=== PATIENT | male | born 1965 | race Hispanic/Latino ===

== ENCOUNTER 2018-07-28 09:57 | Emergency (ER) | payer OTHER ==
[~2018-07-28] VITALS: Ht 165.1 cm; Wt 77.1 kg
[2018-07-28 10:11] VITALS: BP 132/85
== END 2018-07-28 10:16 | disposition home or self-care (01) ==
LOC: ER 09:57
DX: L02.01 Cutaneous abscess of face (principal); I10 Essential (primary) hypertension; E11.9 Type 2 diabetes mellitus without complications
CPT/HCPCS: 99282

== ENCOUNTER 2018-12-12 12:30 | Observation (INO) | payer OTHER ==
[~2018-12-12] VITALS: Ht 165.1 cm; Wt 71.4 kg
--- OUTSIDE RECORDS SUMMARY | 2018-12-12 12:32 | XMS REPORT ---
[facility] Address Unknown Phone Unavailable Care Team Providers Care Aboriginal Education Teacher Name Role Phone Unavailable Unavailable Problems This patient has no known problems. Allergies, Adverse Reactions, Alerts This patient has no known allergies or adverse reactions. Medications This patient has no known medications. Encounters Start Date/Time End Date/Time Encounter Type Admission Type Attending [facility] Care Department Encounter ID 2017-11-23 00:00:00 2017-11-23 00:00:00 Outpatient [facility] [id number] 2017-11-22 00:00:00 2017-11-22 00:00:00 Outpatient [facility] [id number] 2017-11-19 00:00:00 2017-11-19 00:00:00 Outpatient [facility] [id number] 2017-10-11 00:00:00 2017-10-11 00:00:00 Outpatient [facility] [id number] 2017-09-22 00:00:00 2017-09-22 00:00:00 Outpatient [facility] [id number] 2017-08-26 00:00:00 2017-08-26 00:00:00 Outpatient [facility] [id number] 2017-08-25 00:00:00 2017-08-25 00:00:00 Outpatient [facility] [id number] 2017-07-28 00:00:00 2017-07-28 00:00:00 Outpatient [facility] [id number] 2017-07-26 00:00:00 2017-07-26 00:00:00 Outpatient [facility] [id number] 2017-07-25 00:00:00 2017-07-25 00:00:00 Outpatient [facility] [id number] 2017-07-25 00:00:00 2017-07-25 00:00:00 Outpatient [facility] [id number] 2017-07-19 10:29:20 2017-07-19 10:29:20 Outpatient [facility] [id number] 2017-07-01 00:00:00 2017-07-01 00:00:00 Outpatient [facility] [id number] 2017-06-27 00:00:00 2017-06-27 00:00:00 Outpatient [facility] [id number] 2017-06-24 09:39:54 2017-06-24 09:39:54 Outpatient [facility] [id number] 2017-05-27 12:53:37 2017-05-27 12:53:37 Outpatient [facility] [id number] 2017-05-24 13:25:09 2017-05-24 13:25:09 Outpatient [facility] [id number] 2017-05-19 14:41:06 2017-05-19 14:41:06 Outpatient [facility] [id number] 2017-03-03 00:00:00 2017-03-03 00:00:00 Outpatient [facility] [id number] 2017-02-09 00:00:00 2017-02-09 00:00:00 Outpatient [facility] [id number] 2017-02-08 00:00:00 2017-02-08 00:00:00 Outpatient [facility] [id number] 2017-02-08 00:00:00 2017-02-08 00:00:00 Outpatient [facility] [id number] 2017-01-28 09:51:54 2017-01-28 09:51:54 Outpatient [facility] [id number] 2017-01-11 08:42:56 2017-01-11 08:42:56 Outpatient [facility] [id number] 2017-01-06 00:00:00 2017-01-06 00:00:00 Outpatient [facility] [id number] 2016-12-17 14:35:16 2016-12-17 14:35:16 Outpatient [facility] [id number] 2016-12-15 13:54:51 2016-12-15 13:54:51 Outpatient [facility] [id number] 2016-12-15 12:47:55 2016-12-15 12:47:55 Outpatient [facility] [id number] 2016-12-14 08:35:32 2016-12-14 08:35:32 Outpatient [facility] [id number] 2016-11-19 15:41:58 2016-11-19 15:41:58 Outpatient [facility] [id number] 2016-11-09 15:21:59 2016-11-09 15:21:59 Outpatient [facility] [id number] 2016-11-09 14:12:02 2016-11-09 14:12:02 Outpatient [facility] [id number] 2016-10-20 09:37:44 2016-10-20 09:37:44 Outpatient [facility] [id number]
[2018-12-12] MEDS ORDERED: ASPIRIN 81 MG CHEW TAB PO ONE (13:00)
--- NOTE | 2018-12-12 13:01 | NUR ---
SEEN BY DR. FOSTER IN TREATMENT ROOM
[2018-12-12] MEDS ORDERED: FAMOTIDINE 20 MG/2 ML VIAL IV STA (13:09)
[2018-12-12] MEDS ORDERED: SODIUM CHLORIDE 0.9% 1000ML 1,000 ML IV STA (13:09)
[2018-12-12] MEDS ORDERED: METOPROLOL TARTRATE 50 MG TAB PO STA (13:09)
[2018-12-12] MEDS ORDERED: DEXTROSE 50% SYRINGE 50 ML IV PRN (13:15)
[2018-12-12] MEDS ORDERED: NITROGLYCERIN 0.4 MG SUBL SL PRN (13:15)
[2018-12-12] MEDS ORDERED: ENOXAPARIN SODIUM INJ 100 MG/ML SYR SC SCH (13:15)
[2018-12-12] MEDS ORDERED: ONDANSETRON HCL INJ 2MG/ML 2ML 2 MG/ML VIAL IV PRN (13:15)
[2018-12-12] MEDS ORDERED: MORPHINE SULFATE 2 MG/ML SYR 1ML IV PRN (13:15)
[2018-12-12] MEDS ORDERED: ENOXAPARIN INJ 80 MG/0.8 ML SYR SC ONE (13:30)
[2018-12-12 14:04] LABS: AMPHETAMINES SCREEN,URINE N (NEGATIVE); BENZODIAZEPINES SCREEN,URINE N (NEGATIVE); PHENCYCLIDINE SCREEN,URINE N (NEGATIVE)
[2018-12-12 14:06] LABS: BILIRUBIN,URINE NEGATIVE (NEGATIVE); CLARITY,URINE CLEAR (CLEAR); COLOR,URINE YELLOW (YELLOW); KETONES,URINE NEGATIVE (NEGATIVE); LEUKOCYTE ESTERASE ,URINE TRACE (NEGATIVE); NITRITE,URINE NEGATIVE (NEGATIVE); PROTEIN,URINE DIPSTICK NEGATIVE (NEGATIVE); URINE UROBILINOGEN 0.2 mg/dL (0.2 - 1)
--- NOTE | 2018-12-12 14:15 | Diagnostic Imaging Report ---
Chest, 1 view, 12/12/2018. History: Chest pain. Comparison: None available. Findings: The cardiomediastinal silhouette and pulmonary vasculature are within normal limits for a portable exam. There is no focal consolidation or pleural effusion. There are no acute osseous or soft tissue abnormalities. Impression: No acute cardiopulmonary abnormality. Signed by: Tavo Braxton on 12/12/2018 2:11 PM
[2018-12-12 14:28] LABS: BASOPHILS % 0.6 % (0.0-1.0); EOSINOPHILS # (AUTO) 0.1 (0.0-0.4); EOSINOPHILS % 2.1 % (0.0-6.0); HEMATOCRIT 46.4 % (38.2-49.6); HEMOGLOBIN 16.2 g/dL (14.0-18.0); LYMPHOCYTES # (AUTO) 1.8 (1.0-3.2); MEAN CORPUSCULAR HGB CONC 34.9 g/dL (31-35); MEAN CORPUSCULAR VOLUME 97.3 fL (81-99); MONOCYTES # (AUTO) 0.5 (0.2-0.8); MONOCYTES % 7.8 % (4.4-11.3); NEUTROPHILS # (AUTO) 3.8 (2.1-6.9); NEUTROPHILS % 60.3 % (38.7-80.0); PLATELET COUNT 192 x10e3/uL (140-360); RED BLOOD COUNT 4.77 x10e6/uL (4.3-5.7); RED CELL DISTRIBUTION WIDTH 12.1 % (11.7-14.4)
[2018-12-12] MEDS ORDERED: METOPROLOL TARTRATE 25 MG TAB PO SCH (14:30)
[2018-12-12] MEDS: FAMOTIDINE 20 MG/2 ML VIAL IV SCH ×2 (14:30→20:44)
[2018-12-12] MEDS ORDERED: ENOXAPARIN INJ 80 MG/0.8 ML SYR SC SCH (14:30)
[2018-12-12 14:38] LABS: BACTERIA,URINE FEW /HPF; EPITHELIAL CELLS,URINE MODERATE /LPF
[2018-12-12 14:47] LABS: ALANINE AMINOTRANSFERASE 15 IU/L (0-55); ALBUMIN 3.9 g/dL (3.5-5.0); ALBUMIN/GLOBULIN RATIO 1.2 (0.8-2.0); ALKALINE PHOSPHATASE 103 IU/L (40-150); ANION GAP 14.4 mmol/L (8-16); BLOOD UREA NITROGEN 15 mg/dL (7-26); BUN/CREATININE RATIO 13 (6-25); CALCIUM 9.4 mg/dL (8.4-10.2); CARBON DIOXIDE 28 mmol/L (22-29); CHLORIDE 99 mmol/L (98-107); CREATINE KINASE 219 IU/L (30-200); EST GLOMERULAR FILTRATION RATE > 60 ML/MIN (60-); SODIUM 136 mmol/L (136-145)
[2018-12-12 14:51] LABS: GLUCOSE 451 mg/dL (74-118); POTASSIUM 5.4 mmol/L (3.5-5.1)
[2018-12-12] MEDS ORDERED: INSULIN REGULAR, HUMAN 100 UNIT/1 ML 3ML VIAL IV NR (15:00)
[2018-12-12 15:10] LABS: MAGNESIUM 2.3 MG/DL (1.3-2.1)
[2018-12-12] MEDS ORDERED: INSULIN REGULAR, HUMAN 100 UNIT/1 ML 3ML VIAL SQ ONE (15:15)
[2018-12-12 15:20] LABS: INR 0.91; PROTHROMBIN TIME 12.7 seconds (11.9-14.5)
[2018-12-12 15:21] LABS: PARTIAL THROMBOPLASTIN TIME 23.3 seconds (23.8-35.5)
[2018-12-12] MEDS ORDERED: INSULIN REGULAR, HUMAN 100 UNIT/1 ML 3ML VIAL SQ NR (15:45)
[2018-12-12] MEDS ORDERED: HYDRALAZINE HCL 20 MG/ML VIAL IV NR (16:30)
[2018-12-12] MEDS: INSULIN REGULAR, HUMAN 100 UNIT/1 ML 3ML VIAL SQ SCH ×2 (16:30→22:00)
--- NOTE | 2018-12-12 16:42 | NUR ---
RECEIVED PATIENT FROM ER. PATIENT A/O X3, EVEN RESPIRATIONS ON RA. BOWEL SOUNDS ACTIVE, SKIN INTACT, NO EDEMA. TELEMETRY #10 ST-115 PER TELEMETRY. LEFT FA 20 GAUGE IV SL. IV INTACT AND PATENT. PATIENT REPORTS NO CHEST PAIN AT THIS TIME. LUNG SOUNDS CLEAR TO AUSCULTATION. PATIENT AMBULATES INDEPENDENTLY. ORIENTED PATIENT TO ROOM. BED LOW, WHEELS LOCKED, SIDE RAILS X2. CALL LIGHT IN REACH WILL CONTINUE TO MONITOR PATIENT.
[2018-12-12 16:53] VITALS: BP 162/88
[2018-12-12 16:59] VITALS: BP 162/88
[2018-12-12 17:05] VITALS: BP 162/88
--- NOTE | 2018-12-12 19:48 | NUR ---
patient in the room, awake alert oriented, no distress noted, asking for some food. he eats and drinks normal. patient stated no need for IV fluids when the nurse asking if he got IV fluid in ER. denied any discomfort at this time, will continue to monitor.
[2018-12-12 20:06] VITALS: BP 152/88
[2018-12-12] MEDS: LABETALOL HCL 100 MG TAB PO SCH (20:45)
[2018-12-12] MEDS ORDERED: SIMVASTATIN 20 MG TAB PO SCH (21:00)
--- NOTE | 2018-12-12 21:07 | History and Physical ---
HISTORY OF PRESENT ILLNESS: A 53-year-old male, past medical history positive for hypertension and diabetes, came here with chest pain on and off. He is going to be admitted to the hospital. REVIEW OF SYSTEMS: CARDIOVASCULAR: Chest pain. He had chest pain on and off for 15 minutes unless no associated shortness of breath or palpitation. RESPIRATORY: No shortness of breath. No cough. GASTROINTESTINAL: No nausea, vomiting, or diarrhea. GENITOURINARY: No frequency. No dysuria. ALLERGIES: NOT ALLERGIC TO ANY MEDICATION. PAST MEDICAL HISTORY: Hypertension and diabetes. SOCIAL HISTORY: He does not smoke. He drinks occasionally. PHYSICAL EXAMINATION: HEART: Showed regular rhythm. Normal S1 and S2 sound. LUNGS: Clear bilaterally. ABDOMEN: Soft. DIAGNOSTIC DATA: EKG showed normal sinus rhythm. No evidence of any ST-segment elevation or depression. LABORATORY DATA: Lab work is in progress. IMPRESSION: 1. Atypical chest pain. 2. Hypertension. 3. Diabetes mellitus type 2. PLAN OF TREATMENT: We are going to start aspirin, statins, beta blockers, troponin x3. Cardiology consult with Dr. Thomas. Resume home medications. Workup for chest pain will be in progress. MD JESSE Pedroza/GARRY /[id number]
--- NOTE | 2018-12-12 22:15 | NUR ---
informed patient that he will have stress test tomorrow, and he need to be fasting after midnight and no caffein. the patient is aware.
[2018-12-12 23:56] VITALS: BP 156/96
[2018-12-13] VITALS (7 sets, daily range): BP systolic 127–144; BP diastolic 74–85
--- NOTE | 2018-12-13 02:21 | NUR ---
Received report from PM nurse. Patient resting quitly at this time.
[2018-12-13] MEDS: ENOXAPARIN INJ 80 MG/0.8 ML SYR SC SCH ×2 (03:57→16:25)
--- NOTE | 2018-12-13 05:13 | Consultation ---
DATE OF CONSULTATION: Cardiology Consultation REQUESTING PHYSICIAN: Esequiel Potts MD. REASON FOR CONSULTATION: Chest pain. HISTORY OF PRESENT ILLNESS: This is a 53-year-old man with history of diabetes mellitus and hypertension, presents with complaints of chest pain. He reports he has been having chest pain for the last two months, described as pressure 6 to 7/10 in severity, lasting an hour at a time, it occurred every other day associated with nausea and radiates to the head. He denies any edema, orthopnea or PND. He denies any shortness of breath or diaphoresis. REVIEW OF SYSTEMS: Negative except as per HPI. PAST MEDICAL HISTORY: Hypertension, diabetes mellitus. PAST SURGICAL HISTORY: Denies. ALLERGIES: PLEASE SEE EMR. MEDICATIONS: Please see medication list. SOCIAL HISTORY: Denies tobacco, alcohol, or illicit drugs. FAMILY HISTORY: Pertinent for mother with cerebrovascular accident. PHYSICAL EXAMINATION: VITAL SIGNS: Temperature 97.5 degrees, pulse 78, respiratory rate 18, blood pressure 152/88, oxygen saturation 98% on room air. GENERAL: Awake, alert, in no acute distress. Well-developed, well-nourished. HEENT: Normocephalic, atraumatic. Pupils equal. No scleral icterus. NECK: Supple. No thyromegaly or cervical lymphadenopathy. No carotid bruits. LUNGS: Clear to auscultation bilaterally. No wheezes or crackles. CARDIOVASCULAR: Normal rate. Regular rhythm. No murmur. Normal S1, S2. ABDOMEN: Soft, nontender. EXTREMITIES: No edema. NEUROLOGIC: Nonfocal exam. LABORATORY DATA: WBC 6.28, hemoglobin 15.2, hematocrit 46.4, and platelets 192. Sodium 136, potassium 5.4, chloride 99, CO2 of 28, BUN 15, creatinine 1.2, glucose 451. Troponin less than 0.001. Chest x-ray, no acute cardiopulmonary abnormality. EKG, sinus rhythm with nonspecific T-wave abnormalities. IMPRESSION: 1. Chest pain. 2. Abnormal ECG. 3. Hypertension. 4. Diabetes mellitus type 2. RECOMMENDATIONS: Trend cardiac enzymes to rule out myocardial infarction. Given risk factors, ischemic evaluation is indicated with nuclear stress test. Monitor patient on telemetry. Check fasting lipid panel. Further recommendations pending test results. Thank you for this consult. We will continue to follow. MD VERONA Slaughter/GARRY /[id number]
[2018-12-13 05:14] LABS: BASOPHILS % 0.8 % (0.0-1.0); EOSINOPHILS # (AUTO) 0.2 (0.0-0.4); EOSINOPHILS % 4.3 % (0.0-6.0); HEMATOCRIT 42.6 % (38.2-49.6); HEMOGLOBIN 14.6 g/dL (14.0-18.0); LYMPHOCYTES # (AUTO) 1.9 (1.0-3.2); LYMPHOCYTES % 37.8 % (18.0-39.1); MEAN CORPUSCULAR HEMOGLOBIN 33.2 pg (28-32); MEAN CORPUSCULAR HGB CONC 34.3 g/dL (31-35); MEAN CORPUSCULAR VOLUME 96.8 fL (81-99); MONOCYTES # (AUTO) 0.5 (0.2-0.8); MONOCYTES % 10.4 % (4.4-11.3); NEUTROPHILS # (AUTO) 2.4 (2.1-6.9); NEUTROPHILS % 46.5 % (38.7-80.0); PLATELET COUNT 163 x10e3/uL (140-360); RED CELL DISTRIBUTION WIDTH 11.9 % (11.7-14.4)
[2018-12-13 05:38] LABS: CREATINE KINASE MB 1.1 ng/mL (0-5.0)
[2018-12-13 06:06] LABS: ALANINE AMINOTRANSFERASE 14 IU/L (0-55); ALBUMIN 3.3 g/dL (3.5-5.0); ALBUMIN/GLOBULIN RATIO 1.1 (0.8-2.0); ALKALINE PHOSPHATASE 76 IU/L (40-150); ANION GAP 16.9 mmol/L (8-16); BLOOD UREA NITROGEN 16 mg/dL (7-26); BUN/CREATININE RATIO 19 (6-25); CARBON DIOXIDE 24 mmol/L (22-29); CHLORIDE 101 mmol/L (98-107); CHOL/HDL RATIO 5.7 (3.9-4.7); CHOLESTEROL 234 MD/DL (0-199); CREATININE, SERUM 0.86 mg/dL (0.72-1.25); EST GLOMERULAR FILTRATION RATE > 60 ML/MIN (60-); GLUCOSE 235 mg/dL (74-118); HDL CHOLESTEROL 41 MG/DL (40-60); LDL CHOLESTEROL 114 MG/DL (60-130); MAGNESIUM 2.2 MG/DL (1.3-2.1); PHOSPHORUS 3.4 MG/DL (2.3-4.7); POTASSIUM 3.9 mmol/L (3.5-5.1); SODIUM 138 mmol/L (136-145); TRIGLYCERIDES 394 MG/DL (0-149)
--- NOTE | 2018-12-13 06:37 | NUR ---
Consent signed . Patient resting quitly at this time.
--- NOTE | 2018-12-13 06:40 | NUR ---
rounded with power and recovery shift engineer nurse, patient resting comfortably and in no distress. call mora within reach and bed in lowest position.
[2018-12-13] MEDS: INSULIN REGULAR, HUMAN 100 UNIT/1 ML 3ML VIAL SQ SCH ×3 (07:30→16:25)
[2018-12-13] MEDS: FAMOTIDINE 20 MG/2 ML VIAL IV SCH (08:00)
[2018-12-13] MEDS: ASPIRIN 81 MG ENTERIC COATED PO SCH (08:00)
[2018-12-13] MEDS: LABETALOL HCL 100 MG TAB PO SCH ×2 (08:29→20:48)
[2018-12-13] MEDS ORDERED: LISINOPRIL 10 MG TAB PO SCH (09:00)
--- NOTE | 2018-12-13 11:23 | NUR ---
patient alert and oriented. leaving unit via wheelchair to nuclear medicine for stress test.
--- NOTE | 2018-12-13 11:41 | NUR ---
PT IN SHOWER UNABLE TO DO DPA AT THIS TIME
[2018-12-13] MEDS ORDERED: ONDANSETRON HCL 4 MG ORAL DISINTEGRATING TAB PO PRN (12:00)
[2018-12-13] MEDS ORDERED: REGADENOSON 0.4 MG/5 ML SYR IV ONE (12:32)
--- NOTE | 2018-12-13 17:07 | Progress Note ---
DATE: 12/13/2018 Cardiology Progress Note SUBJECTIVE: The patient denies chest pain or shortness of breath. He was seen for nuclear stress test today. OBJECTIVE: VITAL SIGNS: Temperature 97.2 degrees, pulse 86, respiratory rate 20, blood pressure 144/85, oxygen saturation 95% on room air. GENERAL: Awake, alert, in no acute distress. LUNGS: Clear to auscultation bilaterally. No wheezes or crackles. CARDIOVASCULAR: Normal rate, regular rhythm. No murmur. Normal S1, S2. ABDOMEN: Soft, nontender. EXTREMITIES: No edema. CARDIAC MEDICATIONS: Lisinopril 5 mg p.o. daily, aspirin 81 mg p.o. q.a.m., enoxaparin 80 mg subcu q.12 hours, simvastatin 20 mg p.o. at bedtime. LABORATORY DATA: WBC 5.08, hemoglobin 14.6, hematocrit 42.6, platelets 163. Sodium 138, potassium 3.9, chloride 101, CO2 of 24, BUN 16, and creatinine 0.86 troponin 0.009. Cholesterol 234, triglycerides 394, LDL 114, HDL 41. TELEMETRY: Normal sinus rhythm. IMPRESSION: 1. Chest pain. 2. Abnormal ECG. 3. Hypertension. 4. Diabetes mellitus type 2. RECOMMENDATIONS: No evidence of myocardial infarction on serial cardiac biomarkers. Nuclear stress test was performed to evaluate for ischemia. Further recommendations pending review of images once available. Discontinue simvastatin and start atorvastatin given LDL of 114 and known diabetes mellitus. Increase lisinopril as blood pressure is not at goal. Continue current cardiac medications otherwise. Thank you for this consult. We will continue to follow. Liz Lee MD ABS/MODL /[id number]
--- NOTE | 2018-12-13 19:27 | Myoview Stress Test ---
DATE OF STUDY: 12/12/2018 22:19:00 Stress Test - Treadmill ONLY PROCEDURE TYPE: Rest/stress single isotope SPECT imaging with pharmacologic stress and gated SPECT imaging. INDICATION: Chest pain. PROCEDURE IN DETAIL: Pharmacologic stress testing was performed with regadenoson per protocol. The heart rate was 77 beats per minute at rest and then increased to 119 beats per minute during the regadenoson infusion. The resting blood pressure was 119/72 mmHg and decreased to 97/65 mmHg, which is a normal response. The resting electrocardiogram demonstrated normal sinus rhythm. There were no ST-segment changes suggestive of myocardial ischemia. Myocardial perfusion imaging was performed at rest following the injection of 11 mCi of tetrofosmin. At peak pharmacologic effect, the patient was injected with 30 mCi of tetrofosmin. Gated post-stress tomographic imaging was performed. FINDINGS: The overall quality of study is fair. Left ventricular cavity is noted to be normal size on the rest and stress studies. SPECT images demonstrate homogeneous tracer distribution throughout the myocardium. Gated SPECT imaging reveals normal myocardial thickening and wall motion. The left ventricular ejection fraction was calculated to be greater than 70%. IMPRESSION: Myocardial perfusion imaging is normal. Overall, left ventricular systolic function was normal without regional wall motion abnormalities. Liz Lee MD ABS/MODL /[id number]
[2018-12-13] MEDS: INSULIN LISPRO 100 UNIT/1 ML 3ML VIAL SQ SCH (20:48)
[2018-12-13] MEDS ORDERED: ATORVASTATIN 20 MG TAB PO SCH (21:00)
[2018-12-13] MEDS ORDERED: INSULIN GLARGINE 100 UNITS/ML VIAL SQ SCH (21:00)
[2018-12-14 00:32] VITALS: BP 123/85
[2018-12-14 04:21] VITALS: BP 118/81
[2018-12-14] MEDS: ENOXAPARIN INJ 80 MG/0.8 ML SYR SC SCH (04:34)
--- NOTE | 2018-12-14 07:02 | NUR ---
Report given to oncoming SEGUNDO Sarabia, walking round done.
[2018-12-14 08:10] VITALS: BP 139/86
[2018-12-14] MEDS: LABETALOL HCL 100 MG TAB PO SCH (08:10)
[2018-12-14] MEDS: INSULIN LISPRO 100 UNIT/1 ML 3ML VIAL SQ SCH (08:10)
[2018-12-14] MEDS: ASPIRIN 81 MG ENTERIC COATED PO SCH (08:10)
--- NOTE | 2018-12-14 08:15 | Discharge Summary ---
HISTORY OF PRESENT ILLNESS: Jose Alfredo Kumari is a 53-year-old male with past medical history positive for hypertension, history of diabetes, hypercholesterolemia, came to the hospital complaining of some atypical chest pain. He is going to go for a stress test. If it is negative for coronary artery disease, the patient can be going home today. Dr. Thomas, Cardiology will do the stress test today, so discharge is pending on the report of stress test. PHYSICAL EXAMINATION: VITAL SIGNS: Blood pressure 132/84, temperature 37.2, heart rate 80 per minute, respiratory rate 20 per minute, and oxygen saturation 97%. HEART: Showed regular rhythm. Normal S1 and S2 sound. LUNGS: Clear bilaterally. ABDOMEN: Soft. LABORATORY DATA: On BMP; sodium 138, potassium 3.9, chloride 101, CO2 24, BUN 16, creatinine 0.86, and glucose 235. On CBC, white count 5.08, hemoglobin 14.6, hematocrit 42.6, and platelet count 163,000. PT 12.7, INR 0.91, and PTT 23.3. AST 19, ALT 14, total bilirubin 0.6, and alkaline phosphatase 74. Troponin x2 negative. Echocardiogram showed ejection fraction 50%. No evidence of pericardial effusion. No evidence of any severe valvular abnormality. EKG is essentially normal, normal sinus rhythm, no evidence of any ST-segment elevation or depression or T-wave inversions. IMPRESSION: 1. Chest pain. 2. Hypertension. 3. Diabetes mellitus, type 2 with hyperglycemia. PLAN OF TREATMENT: Continue aspirin 81 mg daily, lisinopril 5 mg daily. Continue monitoring blood sugar before meals and at bedtime. Continue with Pepcid. He is continued on labetalol 100 mg twice a day, Zocor 20 mg daily. Diabetic diet. Deemed to be discharged today only if okay with Dr. Thomas if the stress test is negative. Follow up with me in a week. MD JESSE Pedroza/GARRY /[id number]
--- NOTE | 2018-12-14 08:57 | NUR ---
PT IS SHOWER AT THIS TIME
[2018-12-14] MEDS ORDERED: LISINOPRIL 10 MG TAB PO SCH (09:00)
--- NOTE | 2018-12-14 09:30 | NUR ---
patient alert and oriented. discharge instructions given at this time, patient verbalized understanding. IV discontinued, catheter in tact and small dressing applied. patient refused wheelchair assistance and will ambulate to personal auto to return home.
--- NOTE | 2018-12-14 17:43 | Discharge Summary ---
CHIEF COMPLAINT: The patient is a 53-year-old male with past medical history positive for hypertension and diabetes, came here with chest pain. Cardiac enzymes and EKG were normal. Adenosine Cardiolite stress test was negative. The patient is going home today. PHYSICAL EXAMINATION: VITAL SIGNS: Blood pressure 139/86, temperature 96.9, heart rate 81 per minute, respiratory rate 18 per minute, and oxygen saturation 97%. HEART: Showed regular rhythm. Normal S1 and S2 sound. LUNGS: Clear bilaterally. LABORATORY DATA: On the blood work, sodium 138, potassium 3.9, chloride 101, CO2 24, BUN 16, creatinine 0.86, and glucose 235. On CBC; white blood count 5.08, hemoglobin 14.6, hematocrit 42.6, and platelet count 163,000. PT 12.7, INR 0.91, and PTT 23.3. AST 19, ALT 14, total bilirubin 0.6, and alkaline phosphatase 76. Troponin negative. FINAL IMPRESSION: 1. Chest pain with a negative stress test, negative nuclear medicine stress test. 2. Uncontrolled diabetes mellitus type 2. 3. Hypertension. PLAN OF TREATMENT: The patient going to be discharged on aspirin 81 mg daily. He is taking lisinopril 10 mg daily, labetalol 100 mg q.12 hours, and Lipitor 20 mg daily. Continue with Levemir at home. Continue current medical treatment. Follow me in a week. Diet, 1800 calorie ADA diet. MD JESSE Pedroza/GARRY /[id number]
== END 2018-12-14 09:30 | disposition home or self-care (01) ==
LOC: ER 12:30 → ERHOLD 13:13 → IMCU 17:03
PROVIDERS: ADMIT Internal Medicine; ATTEND Internal Medicine
DX: R07.89 Other chest pain (principal); E11.65 Type 2 diabetes mellitus with hyperglycemia; E87.5 Hyperkalemia; I10 Essential (primary) hypertension; F14.20 Cocaine dependence, uncomplicated; Z79.4 Long term (current) use of insulin; Z82.49 Family history of ischemic heart disease and other diseases of the circulatory system; R94.31 Abnormal electrocardiogram [ECG] [EKG]
CPT/HCPCS: 36415 ×3; 71045; 78452; 80053 ×2; 80061; 80307; 81001; 82550 ×2; 82553 ×2; 82948 ×3; 83690; 83735 ×2; 84100; 84484 ×2; 85025 ×2; 85610; 85730; 93005; 93017; 93306; 99284; A9502; G0378 ×3; J0360; J1650 ×3; J1815; J1817; J2785

== ENCOUNTER 2018-12-25 10:12 | Emergency (ER) | payer OTHER ==
[~2018-12-25] VITALS: Ht 165.1 cm; Wt 71.2 kg
[2018-12-25] MEDS ORDERED: ASPIRIN 81 MG CHEW TAB PO ONE (10:15)
[2018-12-25 10:50] LABS: BASOPHILS % 0.6 % (0.0-1.0); EOSINOPHILS # (AUTO) 0.1 (0.0-0.4); EOSINOPHILS % 2.6 % (0.0-6.0); HEMATOCRIT 45.2 % (38.2-49.6); HEMOGLOBIN 15.6 g/dL (14.0-18.0); LYMPHOCYTES # (AUTO) 1.6 (1.0-3.2); LYMPHOCYTES % 31.3 % (18.0-39.1); MEAN CORPUSCULAR HEMOGLOBIN 33.4 pg (28-32); MEAN CORPUSCULAR HGB CONC 34.5 g/dL (31-35); MEAN CORPUSCULAR VOLUME 96.8 fL (81-99); MONOCYTES # (AUTO) 0.5 (0.2-0.8); MONOCYTES % 9.8 % (4.4-11.3); NEUTROPHILS # (AUTO) 2.8 (2.1-6.9); NEUTROPHILS % 55.1 % (38.7-80.0); PLATELET COUNT 319 x10e3/uL (140-360); RED BLOOD COUNT 4.67 x10e6/uL (4.3-5.7); RED CELL DISTRIBUTION WIDTH 11.8 % (11.7-14.4)
[2018-12-25 10:52] LABS: ALANINE AMINOTRANSFERASE 14 IU/L (0-55); ALBUMIN 3.5 g/dL (3.5-5.0); ALKALINE PHOSPHATASE 124 IU/L (40-150); ANION GAP 14.9 mmol/L (8-16); BLOOD UREA NITROGEN 14 mg/dL (7-26); BUN/CREATININE RATIO 12 (6-25); CALCIUM 9.9 mg/dL (8.4-10.2); CARBON DIOXIDE 27 mmol/L (22-29); CHLORIDE 98 mmol/L (98-107); CREATINE KINASE 126 IU/L (30-200); CREATININE, SERUM 1.15 mg/dL (0.72-1.25); EST GLOMERULAR FILTRATION RATE > 60 ML/MIN (60-); POTASSIUM 4.9 mmol/L (3.5-5.1); SODIUM 135 mmol/L (136-145)
[2018-12-25 10:57] LABS: GLUCOSE 490 mg/dL (74-118)
[2018-12-25 11:10] LABS: INR 0.84; PARTIAL THROMBOPLASTIN TIME 28.1 seconds (23.8-35.5)
[2018-12-25] MEDS ORDERED: INSULIN REGULAR, HUMAN 100 UNIT/1 ML 3ML VIAL IV ONE (11:15)
[2018-12-25] MEDS ORDERED: SODIUM CHLORIDE 0.9% 1000ML 1,000 ML IV ONE (11:15)
--- NOTE | 2018-12-25 12:09 | Diagnostic Imaging Report ---
EXAMINATION: CHEST SINGLE (PORTABLE) INDICATION: Chest pain COMPARISON: Chest radiograph of 12/12/2018 FINDINGS: LINES/TUBES:EKG leads overlie the chest. LUNGS:The lungs are moderately inflated. No focal consolidation or pulmonary edema. PLEURA:No pleural effusion or pneumothorax. MEDIASTINUM:The cardiomediastinal silhouette appears normal in size and shape. BONES/SOFT TISSUES:No acute osseous injury. ABDOMEN:No free air under the diaphragm. IMPRESSION: No focal pneumonia or pulmonary edema. Signed by: Trena Darden MD on 12/25/2018 12:05 PM
[2018-12-25 12:39] VITALS: BP 128/81
== END 2018-12-25 12:45 | disposition home or self-care (01) ==
LOC: ER 10:12
DX: R07.89 Other chest pain (principal); E11.65 Type 2 diabetes mellitus with hyperglycemia; I10 Essential (primary) hypertension; F10.10 Alcohol abuse, uncomplicated; Z83.3 Family history of diabetes mellitus; Z82.49 Family history of ischemic heart disease and other diseases of the circulatory system
CPT/HCPCS: 36415; 71045; 80053; 82550; 82553; 82948; 84484; 85025; 85610; 85730; 93005; 99284; J1817; J7030

== ENCOUNTER 2020-04-09 16:31 | Emergency (ER) | payer OTHER ==
[~2020-04-09] VITALS: Ht 165.1 cm; Wt 71.2 kg
[2020-04-09] MEDS ORDERED: METFORMIN HCL500 MG PO (17:16)
[2020-04-09] MEDS ORDERED: LEVEMIR FL100 UNIT/1 SC (17:16)
[2020-04-09] MEDS ORDERED: IBUPROFEN200 MG PO (17:16)
[2020-04-09] MEDS ORDERED: LISINOPRIL10 MG PO (17:16)
[2020-04-09] MEDS ORDERED: ATORVASTATIN CA20 MG PO (17:16)
[2020-04-09] MEDS ORDERED: KETOROLAC TROMETHAMINE 30 MG/ML VIAL IV STA (17:23)
[2020-04-09] MEDS ORDERED: LACTATED RINGER'S 1,000 ML INJ ONE ×2 (17:30→19:00)
[2020-04-09 18:01] LABS: BASOPHILS % 0.7 % (0.0-1.0); EOSINOPHILS # (AUTO) 0.1 (0.0-0.4); HEMATOCRIT 44.8 % (38.2-49.6); HEMOGLOBIN 14.9 g/dL (14.0-18.0); LYMPHOCYTES % 17.9 % (18.0-39.1); MEAN CORPUSCULAR HEMOGLOBIN 30.6 pg (28-32); MEAN CORPUSCULAR HGB CONC 33.3 g/dL (31-35); MONOCYTES # (AUTO) 0.8 (0.2-0.8); MONOCYTES % 13.6 % (4.4-11.3); NEUTROPHILS # (AUTO) 3.7 (2.1-6.9); NEUTROPHILS % 65.4 % (38.7-80.0); PLATELET COUNT 301 x10e3/uL (140-360); RED BLOOD COUNT 4.87 x10e6/uL (4.3-5.7); RED CELL DISTRIBUTION WIDTH 13.5 % (11.7-14.4)
[2020-04-09 18:24] LABS: ALANINE AMINOTRANSFERASE 28 IU/L (0-55); ALBUMIN 3.8 g/dL (3.5-5.0); ALBUMIN/GLOBULIN RATIO 1.1 (0.8-2.0); ALKALINE PHOSPHATASE 95 IU/L (40-150); ANION GAP 13.6 mmol/L (8-16); BLOOD UREA NITROGEN 15 mg/dL (7-26); BUN/CREATININE RATIO 18 (6-25); CALCIUM 8.9 mg/dL (8.4-10.2); CARBON DIOXIDE 25 mmol/L (22-29); CHLORIDE 105 mmol/L (98-107); CREATININE, SERUM 0.85 mg/dL (0.72-1.25); EST GLOMERULAR FILTRATION RATE > 60 ML/MIN (60-); GLUCOSE 203 mg/dL (74-118); POTASSIUM 4.6 mmol/L (3.5-5.1); SODIUM 139 mmol/L (136-145)
[2020-04-09] MEDS ORDERED: LACTATED RINGER'S 1,000 ML ONE (18:54)
[2020-04-09 20:17] VITALS: BP 161/100
== END 2020-04-09 20:30 | disposition home or self-care (01) ==
LOC: ER 16:49
DX: U07.1 COVID-19 (principal); I10 Essential (primary) hypertension; E11.9 Type 2 diabetes mellitus without complications; E78.5 Hyperlipidemia, unspecified; Z79.4 Long term (current) use of insulin
CPT/HCPCS: 36415; 71045; 80053; 85025; 87400; 93005; 99283; J1885; J7121; U0002